=== PATIENT | female | born 1960 | race Asian ===

== ENCOUNTER 2022-02-22 22:42 | Emergency (ER) | payer BC ==
[~2022-02-22] VITALS: Ht 162.6 cm; Wt 65.8 kg
--- NOTE | 2022-02-22 23:25 | NUR ---
DR. TURNER GRIMALDO AT PT'S BEDSIDE
--- NOTE | 2022-02-22 23:26 | NUR ---
AFSHANSZOILA FOR ACCIDENTAL INGESTION OF 800MG SEROQUEL AT 9PM. PT AOX3. TOLERATING R/A WELL WITH NO RESP DISTRESS. SAFETY MEASURES IN PLACE. 1:1 SITTER AT PT'S BEDSIDE.
--- NOTE | 2022-02-22 23:43 | NUR ---
BS 195; DR. TOMPKINS DO AWARE
--- NOTE | 2022-02-23 03:36 | NUR ---
PT SLEEPING IN BED. RESP EVEN AND NON LABORED.
--- NOTE | 2022-02-23 05:04 | NUR ---
Patient discharged to home in stable condition to . Written and verbal after care instructions given. Patient verbalizes understanding of instruction. PT ambulatory with a steady gait
[2022-02-23 05:07] VITALS: BP 112/65
== END 2022-02-23 05:07 | disposition home or self-care (01) ==
LOC: ER 22:47
DX: T43.591A Poisoning by other antipsychotics and neuroleptics, accidental (unintentional), initial encounter (principal); R40.0 Somnolence; Z88.8 Allergy status to other drugs, medicaments and biological substances; Y92.89 Other specified places as the place of occurrence of the external cause